=== PATIENT | male | born 1995 | race African-American/Black ===

== ENCOUNTER 2017-12-22 20:40 | Emergency (ER) | payer BC, SELFPAY ==
[2017-12-22 21:04] VITALS: BP 122/73; PULSE 72; RESP 18; TEMP 36.5; O2SAT 99
--- NOTE | 2017-12-22 21:50 | DI.RAD_ITS ---
SYMPTOM/DIAGNOSIS: JAMMED, PIP PAIN RIGHT RING FINGER: Three views. On the oblique view, there appears to be a nondisplaced small fracture at the volar aspect of the base of the middle phalanx of the right ring finger. There is soft tissue swelling of the right ring finger. No radiopaque foreign bodies are seen. IMPRESSION: Findings suspicious for a nondisplaced fracture involving the anterior aspect of the base of the middle phalanx of the right ring finger. The findings were discussed with the ER on 12/24/17.
--- NOTE | 2017-12-22 21:53 | ED.GENADUL_ITS ---
Discharge Plan Disposition Patient Disposition: HOME Condition: Fair Discharge Details Chief Complaint: Orthopedic Clinical Impression: Finger sprain Primary Care Provider: [facility] Provider: Milvia Russell Home Meds and New Rx's Prescriptions: No Action No Known Home Meds RF: 0 Discharge Instructions Instructions: Finger Sprain (ED) Additional Instructions: Encourage rest, ice, elevation. Tylenol and/or ibuprofen as needed for discomfort. Please jesusita tape her fingers as entered by nursing staff to help with discomfort. I have asked our care technician to help facilitate follow- up appointment with primary care. You should hear from them at the beginning of the week for follow-up appointment. If you develop new or worsening symptoms please seek care urgently once again Discharge Data Discharge Date/Time-TO BE ENTERED AT DEPARTURE: 12/22/17 23:15 Medical Decision Making Patient is 22-year-old [id number] male presenting today with chief complaint of right ring finger pain. He reports that approximate 7 hours prior to arrival, while playing flag football, he jammed the affected digit and since that time has had pain particular the PIP joint. He denies any altered sensation. Denies other injury at the time of the incident. Reports that his significant other felt that the injury was crooked he was concerned for possible fracture dislocation. On exam, he has a swelling over the PIP joint as well as associated ecchymosis primarily on the palmar side. Sensation is intact. He does have slightly limited flexion but this may be secondary to swelling. He has good extension and flexion against resistance. Brisk capillary refill. No palpable deformity. Will obtain imaging to evaluate for possible fracture. He is declining any analgesics at this time X-ray reviewed by radiologist. Advised bony structures are unremarkable, no fracture dislocation. Soft tissues are unremarkable, no opaque foreign body. Discussed the findings with the patient. Advised that this likely sprain. Encourage rest, ice, elevation. Advised Tylenol and/or ibuprofen as needed for discomfort. Advised jesusita taping of asked nursing staff to jesusita tape his fingers prior to departure. All his questions and concerns were addressed and he is in agreement with this plan. HPI General Mode of arrival: ambulatory . Date/Time Provider Initiated Documentation: 12/22/17 21:47 . Limitations to Documentation: no limitations . Information obtained by: patient . History of Present Illness 22 year old M presents to the emergency department with the chief complaint of right ring finger pain, described as moderate, with intensity rated at 6. Quality is described as aching, and is localized to the right and upper extremity. Patient reports no radiation. Patient started experiencing this hour(s) and it has been constant. Immobilization improves symptom(s), Movement worsens symptoms . Patient notes no other symptoms.; denies fever/ chills, nausea/vomiting, rash and weakness. Patient did receive the following treatments prior to arrival, none Related Data Home Medications Medication Instructions Recorded Confirmed Unknown [No Known Home Meds] 12/22/17 12/22/17 Allergies Allergy/AdvReac Type Severity Reaction Status Date / Time No Known Allergies Allergy Unverified 12/22/17 21:37 General Stated Complaint: Orthopedic ESTER: 4 Review of Systems Constitutional Reports as per HPI Respiratory Denies cough Musculoskeletal Reports as per HPI, Denies numbness and Denies tingling Integumentary/Breasts Reports as per HPI (notes swelling and ecchymosis over the PIP joint of the ring finger right hand), Denies lesions, Denies nail changes, Denies rash, Denies skin pain, Reports skin swelling and Denies wounds Neurologic Denies numbness, Denies radicular pain, Denies tingling and Denies paresthesias [facility] Social History Smoking/Tobacco Use Status: Never Exam Const General: cooperative, healthy appearing, comfortable, no acute distress, well developed and well groomed Nutritional Appearance: average body habitus and well nourished Orientation: alert, awake and oriented x3 Resp Effort & Inspection: normal respiratory effort, able to speak in complete sentences and no respiratory distress Cardio Rate: regular rate Rhythm: regular rhythm Skin General skin exam: ecchymosis (to palmar side of the PIP joint of the ring finger right hand) Lesions: no lesions Rashes: no rashes Neuro General: alert and awake Cognition: normal cognition Speech: speech normal Gait: normal gait Motor: muscle tone normal throughout Sensory Exam: no sensory deficits noted Extrem General: abnormal to inspection (Patient has swelling and discomfort over the PIP joint of the ring finger right hand. Ecchymosis palmar side of the affected digit. Limited flexion. Ligamentously intact. Sensation intact. No pain elsewhere in the digit.), normal capillary refill and no joint enlargement noted (swelling of the PIP joint right ring finger) Psych Appearance: grossly normal and well kempt Mental Status: mental status grossly normal Speech and Movement: speech and movement normal Mood: congruent mood Course Vital Signs Temperature 36.5 C 12/22/17 21:04 Pulse 72 12/22/17 21:04 Respiratory Rate 18 12/22/17 21:04 Blood Pressure 122/73 12/22/17 21:04 Pulse Oximetry 99 12/22/17 21:04 Temperature 36.5 C 12/22/17 21:04 Temperature Source Tympanic 12/22/17 21:04 Pulse 72 12/22/17 21:04 Respiratory Rate 18 12/22/17 21:04 Respiratory Effort Non-Labored 12/22/17 21:35 Blood Pressure 122/73 12/22/17 21:04 Pulse Oximetry 99 12/22/17 21:04 Oxygen Delivery Method Room Air 12/22/17 21:04 Oxygen Flow Rate 0 12/22/17 21:04 Pain Level 4 12/22/17 21:35
--- NOTE | 2017-12-22 22:33 | DI.VRAD_ITS ---
EXAM: XR Right Finger(s), 2 or More Views EXAM DATE/TIME: 12/22/2017 9:52 PM CLINICAL HISTORY: 22 years old, male; Pain; Finger(s); Right; Patient HX: R ring finger pip pain, jammed TECHNIQUE: XR Right finger minimum 2 views. COMPARISON: No relevant prior studies available. FINDINGS: Bones/joints: Bony structures are unremarkable. No fracture. No dislocation. Soft tissues: Soft tissues are unremarkable. No opaque foreign body. IMPRESSION: Normal right hand with attention to the ring finger. Dictated and Authenticated by: Medardo King MD. Ordering:FAHAD ANDUJAR MD
--- NOTE | 2017-12-24 08:57 | PDOC.ERCMPRO ---
Care Management Progress Note 12/24-Milvia MUIR requested assistance with a PCP f/u in 1-2 weeks for finger injury. Patient also needs to establish care. Noelle Contreras dictaphone transcriber. Referral faxed to [facility] this morning.
--- NOTE | 2017-12-25 08:24 | W.ED.FU ---
Call received from radiology regarding nondisplaced fracture anterior base volar plate of the middle phalanx that was not noted on initial radiology interpretation. I called and spoke with the patient this morning and advised that he return to the emergency department for volar splinting. I encouraged him to keep jesusita taping intact and not use his finger until he is able to have splint placed. Patient verbalized understanding of my instructions and plans to return today.
== END 2017-12-22 23:15 | disposition home or self-care (01) ==
LOC: ER 23:15
PROVIDERS: Emergency Provider Physician Assistant
DX: S63.614A Unspecified sprain of right ring finger, initial encounter (principal); X50.0XXA Overexertion from strenuous movement or load, initial encounter
CPT/HCPCS: 99283; 73140; 99282

== ENCOUNTER 2017-12-25 15:36 | Emergency (ER) | payer BC, SELFPAY ==
[2017-12-25 15:54] VITALS: BP 117/101; PULSE 73; RESP 16; TEMP 36.5; O2SAT 98
[2017-12-25 16:00] VITALS: BP 132/65
--- NOTE | 2017-12-25 16:14 | W.ED.GENAD ---
Discharge Plan Disposition Patient Disposition: HOME Discharge Details Chief Complaint: Orthopedic Clinical Impression: Closed fracture of finger, phalanx, middle or proximal, Closed fracture of middle phalanx of finger Primary Care Provider: [facility] ED Provider: Wyatt Galindo Home Meds and New Rx's Prescriptions: No Action No Known Home Meds RF: 0 Discharge Instructions Instructions: Finger Fracture (ED) Additional Instructions: Do not use finger. Keep splint intact for the next 2-3 weeks. If pain persists, follow-up with orthopedics. Please contact your primary care physician to arrange follow-up. Return to the ER for any worsening or new concerning symptoms. Referrals: Luca Baptiste MD [ [facility] STAFF PHYSICIAN] - Medical Decision Making 22-year-old male seen here 2 days ago after he jammed his finger, had x-ray that was initially interpreted by radiology as negative, over read by radiology post as nondisplaced fracture of volar plate middle phalanx. Patient instructed to return for volar splint. Volar splint applied by me. Patient neurovascular intact post splint application. Patient was instructed to maintain splint for the next 2-3 weeks, not use his finger, and follow-up with orthopedic should pain persist or he develop any limited range of motion. HPI General Date/Time Provider Initiated Documentation: 12/25/17 16:14. HPI Narrative: 22-year-old male here for finger fracture that was not seen on initial interpretation by radiology on x-ray 12/22/2017. Patient was called and instructed to return to ED for splinting. Patient notes pain is been tolerable with no significant swelling. No numbness or tingling. Related Data Home Medications Medication Instructions Recorded Confirmed Unknown [No Known Home Meds] 12/22/17 12/25/17 Allergies Allergy/AdvReac Type Severity Reaction Status Date / Time No Known Allergies Allergy Unverified 12/25/17 15:58 General Stated Complaint: Orthopedic ESTER: 5 Review of Systems Review of Systems as per hpi [facility] Social History Smoking/Tobacco Use Status: Never Exam Extrem Other: right hand: 4th digit minimally ttp middle phalanx, no swelling, distal sensation and motor intact, able to flex and ext at pip and dip Course Vital Signs Temperature 36.5 C 12/25/17 15:54 Pulse 73 12/25/17 15:54 Respiratory Rate 16 12/25/17 15:54 Blood Pressure 117/101 H 12/25/17 15:54 Pulse Oximetry 98 12/25/17 15:54 Temperature 36.5 C 12/25/17 15:54 Temperature Source Skin 12/25/17 15:54 Pulse 73 12/25/17 15:54 Respiratory Rate 16 12/25/17 15:54 Respiratory Effort Non-Labored 12/25/17 15:57 Blood Pressure 132/65 12/25/17 16:00 Pulse Oximetry 98 12/25/17 15:54 Pain Level 2 12/25/17 15:58
--- NOTE | 2017-12-25 16:23 | ED.GENADUL_ITS ---
Discharge Plan Disposition Patient Disposition: HOME Discharge Details Chief Complaint: Orthopedic Clinical Impression: Closed fracture of finger, phalanx, middle or proximal, Closed fracture of middle phalanx of finger Primary Care Provider: [facility]LEX,[facility] ED Provider: Wyatt Galindo Home Meds and New Rx's Prescriptions: No Action No Known Home Meds RF: 0 Discharge Instructions Instructions: Finger Fracture (ED) Additional Instructions: Do not use finger. Keep splint intact for the next 2-3 weeks. If pain persists, follow-up with orthopedics. Please contact your primary care physician to arrange follow-up. Return to the ER for any worsening or new concerning symptoms. Referrals: Luca Baptiste MD [ [facility] STAFF PHYSICIAN] - Medical Decision Making 22-year-old male seen here 2 days ago after he jammed his finger, had x-ray that was initially interpreted by radiology as negative, over read by radiology post as nondisplaced fracture of volar plate middle phalanx. Patient instructed to return for volar splint. Volar splint applied by me. Patient neurovascular intact post splint application. Patient was instructed to maintain splint for the next 2-3 weeks, not use his finger, and follow-up with orthopedic should pain persist or he develop any limited range of motion. HPI General Date/Time Provider Initiated Documentation: 12/25/17 16:14 . HPI Narrative: 22-year-old male here for finger fracture that was not seen on initial interpretation by radiology on x-ray 12/22/2017. Patient was called and instructed to return to ED for splinting. Patient notes pain is been tolerable with no significant swelling. No numbness or tingling. Related Data Home Medications Medication Instructions Recorded Confirmed Unknown [No Known Home Meds] 12/22/17 12/25/17 Allergies Allergy/AdvReac Type Severity Reaction Status Date / Time No Known Allergies Allergy Unverified 12/25/17 15:58 General Stated Complaint: Orthopedic ESTER: 5 Review of Systems Review of Systems as per hpi [facility] Social History Smoking/Tobacco Use Status: Never Exam Extrem Other: right hand: 4th digit minimally ttp middle phalanx, no swelling, distal sensation and motor intact, able to flex and ext at pip and dip Course Vital Signs Temperature 36.5 C 12/25/17 15:54 Pulse 73 12/25/17 15:54 Respiratory Rate 16 12/25/17 15:54 Blood Pressure 117/101 H 12/25/17 15:54 Pulse Oximetry 98 12/25/17 15:54 Temperature 36.5 C 12/25/17 15:54 Temperature Source Skin 12/25/17 15:54 Pulse 73 12/25/17 15:54 Respiratory Rate 16 12/25/17 15:54 Respiratory Effort Non-Labored 12/25/17 15:57 Blood Pressure 132/65 12/25/17 16:00 Pulse Oximetry 98 12/25/17 15:54 Pain Level 2 12/25/17 15:58
--- NOTE | 2017-12-27 11:48 | PDOC.ERCMPRO ---
Care Management Progress Note 12/27/17-Pt has been referred to Ortho. A referral was faxed to [facility] to establish a PCP and f/u. [facility] reports they were unable to reach Pt and no VM.
== END 2017-12-25 16:35 | disposition home or self-care (01) ==
PROVIDERS: Emergency Provider Student in an Organized Health Care Education/Training Program
DX: S62.344A Nondisplaced fracture of base of fourth metacarpal bone, right hand, initial encounter for closed fracture (principal); X50.0XXA Overexertion from strenuous movement or load, initial encounter
CPT/HCPCS: 26720